=== PATIENT | female | born 1965 | race Caucasian/White ===

== ENCOUNTER → 2017-10-20 | Outpatient (CLI) | payer BC ==
[~2017-10-20] MED LIST: ASPIRIN325 PO; BAYER CHEWABLE81 MG PO; BYSTOLIC 5 MG5 M1 PO; BYSTOLIC10 MG PO; LISINOPRIL10 MG PO; MULTIVITAMINS1 EAC7 PO; PEPCID20 MG PO
== END ==
LOC: NUC 08:39 → RAD 08:39
DX: Z13.820 Encounter for screening for osteoporosis (principal); Z12.31 Encounter for screening mammogram for malignant neoplasm of breast

== ENCOUNTER → 2019-07-10 | Outpatient (CLI) | payer BC | LOC: RAD 11:10 → NUC 11:10 | DX: Z12.31 Encounter for screening mammogram for malignant neoplasm of breast (principal); M81.0 Age-related osteoporosis without current pathological fracture; Z78.0 Asymptomatic menopausal state ==

== ENCOUNTER → 2019-07-10 | Outpatient (CLI) | payer OTHER | LOC: CAT 13:00 | DX: Z13.6 Encounter for screening for cardiovascular disorders (principal); E78.00 Pure hypercholesterolemia, unspecified; I25.10 Atherosclerotic heart disease of native coronary artery without angina pectoris ==

== ENCOUNTER → 2019-07-26 | Outpatient (CLI) | payer BC ==
--- NOTE | 2019-07-26 14:13 | EXE ---
[facility] [place] [address] STRESS ECHOCARDIOGRAM Name: CHENG LEWIS Room #: REG [facility]#: [id number] Admission: 07/26/19 Attend Phys: Olivier Mao, Discharge: Date of : 63 Report #: [id number] THIS REPORT FOR: //name// APPROVED REPORT Study performed: 07/26/2019 10:17:06 Exam: Stress Echocardiogram Indication: Hypertension Patient Location: Out-Patient Stress Nurse: Mary OLMOS Status: routine Ht: 5 ft 9 in HR: 56 bpm BP: 110/68 mmHg Rhythm: Bradycardia Medical History Medical History: HTN Allergies: No known drug allergies Cardiac Risk Factors: HTN, FHX of CAD Exercise History: Physically active Procedure The patient underwent an Exercise Stress Test using the Wil Protocol. Blood pressure, heart rate, and EKG were monitored. An Echocardiogram was performed by staging technician in four stages in quad fashion. At peak stress, four selected images were obtained and placed side by side with resting images for comparison. Stress Test Details Stress Test: Exercise stress testing was performed using a Wil protocol. HR Resting HR: 56 bpm Max Heart Rate (APMHR): 165 bpm Max HR Achieved: 166 bpm Target HR (85% APMHR): 140 bpm % of APMHR: 100 Recovery HR: 86 bpm HR response to stress: Normal HR response to stress BP Resting BP: 110/68 mmHg Max BP: 152/82 mmHg Recovery BP: 110/60 mmHg BP response to stress: Normal blood pressure response to [facility] [address] [place] [address] STRESS ECHOCARDIOGRAM Name: KALISPEL,CHENG M Room #: REG [facility]#: [id number] Admission: 07/26/19 Attend Phys: Olivier Mao, Discharge: Date of : 63 Report #: [id number] stress. ECG Resting ECG: Sinus Rhythm Stress ECG: Sinus Tachycardia Recovery ECG: Sinus Rhythm Clinical Reason for Termination: Maximal effort Exercise duration: 13 min 25 sec Highest Stage Achieved: Stage 5: 5.0 mph at 18% grade. Exercise capacity: 17.5 METs Overall Exercise Capacity for Age: Excellent Stress ECG Conclusion 1. Subjectively negative for ischemia 2. Echocardiographic negative for ischemia 3. Excellent functional capacity Pre-Stress Echo The resting Echocardiogram showed normal left ventricular contractility with an estimated Ejection Fraction of about >55%. The resting echocardiogram demonstrated normal wall motion in all wall segments. Post-Stress Echo The stress Echocardiogram showed normal left ventricular contractility with an estimated Ejection Fraction of about 65-70%. Compared to rest, there were no stress-induced wall motion abnormalities. Conclusion Clinical Response: Non-ischemic Exercise Capacity: Superior Stress ECG Response: Non-ischemic Stress Echo Images: Non-ischemic 1. Low risk study No prior study available for comparison. Other Information Study Quality: Good [facility] [address] [place] [address] STRESS ECHOCARDIOGRAM Name: CHENG LEWIS Room #: REG [facility]#: [id number] Admission: 07/26/19 Attend Phys: Olivier Mao, Discharge: Date of : 63 Report #: [id number] <Conclusion> 1. Low risk study <ELECTRONICALLY SIGNED> By: Keegan Al MD 07/26/191411 11 11 Keegan Al MD /INF
== END ==
LOC: ULTRA 09:57 → CATH 09:57 → CV 09:57
DX: I10 Essential (primary) hypertension (principal); E78.2 Mixed hyperlipidemia; G45.9 Transient cerebral ischemic attack, unspecified; Z82.49 Family history of ischemic heart disease and other diseases of the circulatory system